=== PATIENT | female | born 2000 | race Caucasian/White ===

== ENCOUNTER 2019-01-08 20:21 | Emergency (ER) | payer SELFPAY ==
[2019-01-08 20:22] VITALS: TEMP 98
[2019-01-08 20:42] LABS: BASO # 0.1 (0.0-0.2); BASO % 0.8 % (0.0-2.0); EOS # 0.1 (0.0-0.7); EOS % 1.4 % (0-4.0); GRAN # 5.3 (1.4-6.5); GRAN % 59.6 % (42.2-75.2); HEMOGLOBIN 12.7 g/dl (12.0-15.0); LYMPH # 2.8 (1.2-3.4); LYMPH % 31.6 % (20.0-51.0); MEAN CELL VOLUME 90 fl (80.0-95.0); MEAN CORPUSCULAR HEMOGLOBIN 31 pg (26.0-32.0); MEAN CORPUSCULAR HGB CONC 34 g/dl (33.0-37.0); MEAN PLATELET VOLUME 8.8 fl (7.4-10.4); MONO # 0.6 (0.1-0.6); MONO % 6.3 % (1.7-9.3); PLATELET COUNT 395 K/mm3 (130-400); REDCELL DISTRIBUTION WIDTH-CV 11.9 % (11.5-14.5)
[2019-01-08 20:45] LABS: HEMATOCRIT 36.9 % (35.0-45.0)
[2019-01-08 20:51] LABS: ALBUMIN 4.4 gm/dL (3.5-5.0); BILIRUBIN,TOTAL 0.2 mg/dL (0.0-1.0); CREATININE, serum 0.64 (0.52-1.25); POTASSIUM 3.4 mmol/L (3.4-5.0); TOTAL PROTEIN 7.4 gm/dL (6.4-8.2)
[2019-01-09] MEDS ORDERED: BIRTH CONTROL PO (01:22)
[2019-01-09 03:22] VITALS: BP 110/86; PULSE 114
== END 2019-01-09 03:22 | disposition home or self-care (01) ==
LOC: COL.ER 20:21
PROVIDERS: Emergency Medicine
DX: F10.129 Alcohol abuse with intoxication, unspecified (principal); R11.2 Nausea with vomiting, unspecified
CPT/HCPCS: J2405; J7030